=== PATIENT | male | born 1985 | race Caucasian/White ===

== ENCOUNTER 2022-06-05 08:00 | Outpatient (CLI) | payer MEDICAID ==
--- NOTE | 2022-06-05 17:19 | XRAY Report ---
PROCEDURE: Clavicle RT INDICATIONS: R CLAVICLE PX TECHNIQUE: 2 views of the clavicle were acquired. COMPARISON: None. FINDINGS: Bones: Imaging findings shows a nonunified fracture through the midshaft of the patient's right clavi emily. Soft tissues: No suspicious soft tissue calcifications. IMPRESSION: Subacute nonunified fracture involving the midshaft of the patient's right clavicle with approximatel y one shaft width of inferior displacement of the distal fracture fragment. Reviewed by: Pal Macias MD on 06/05/2022 5:17 PM PST Approved by: Pal Macias MD on 06/05/2022 5:17 PM PST Station ID: [id number]
== END 2022-06-05 23:59 | disposition home or self-care (01) ==
LOC: DI.N 08:00
PROVIDERS: ATTEND Family Medicine
DX: S42.021K Displaced fracture of shaft of right clavicle, subsequent encounter for fracture with nonunion (principal)